=== PATIENT | female | born 1985 | race Caucasian/White ===

== ENCOUNTER 2016-09-12 04:24 | Emergency (ER) | payer MEDICAID ==
[~2016-09-12] VITALS: Ht 137.2 cm; Wt 82.0 kg
[2016-09-12] MEDS ORDERED: VISCOUS LIDOCAINE 2% 15 ML UDC MM ONE (06:30)
[2016-09-12 06:50] VITALS: BP 100/55
== END 2016-09-12 09:59 | disposition home or self-care (01) ==
LOC: ER 04:26
DX: T16.2XXA Foreign body in left ear, initial encounter (principal); W45.8XXA Other foreign body or object entering through skin, initial encounter; Y93.89 Activity, other specified; Y92.89 Other specified places as the place of occurrence of the external cause; Y99.8 Other external cause status
CPT/HCPCS: 69200; 99284; X7700; Z7610